=== PATIENT | female | born 1985 | race Native Hawaiian/Other Pacific Islander ===

== ENCOUNTER 2019-04-13 18:37 | Emergency (ER) | payer OTHER ==
[2019-04-13] MEDS ORDERED: SODIUM CHLORIDE 0.9% 1,000 ML IV STA (19:27)
[2019-04-13] MEDS ORDERED: IPRATROPIUM-ALBUTEROL 3 ML NEB INHALATION STA (19:27)
[2019-04-13 19:58] LABS: Anion Gap 10 mmol/L; Blood Urea Nitrogen 10 mg/dL (7-17); Carbon Dioxide 23 mmol/L (22-30); Chloride 107 mmol/L (98-107); Glucose 92 mg/dL (74-99); Sodium 140 mmol/L (137-145)
[2019-04-13 19:59] LABS: ALT 19 U/L (9-52); AST 24 U/L (14-36); Albumin 4.3 g/dL (3.5-5.0); Alkaline Phosphatase 91 U/L (38-126); Calcium 9.1 mg/dL (8.4-10.2); Total Bilirubin 0.4 mg/dL (0.2-1.3); Total Protein 7.8 g/dL (6.3-8.2)
[2019-04-13 19:59] LABS: Amorphous Sediment,Urine Rare /hpf; Appearance,Urine Clear (Clear); Bacteria,Urine Rare /hpf; Bilirubin,Urine Negative (Negative); Blood,Urine Trace (Negative); Color,Urine Yellow; Glucose,Urine (UA) Negative (Negative); Ketones,Urine Negative (Negative); Leukocyte Esterase,Urine Negative (Negative); Mucus,Urine Occasional /hpf; Nitrite,Urine Negative (Negative); PH, Urine 7.5 (5.0-8.0); Protein,Urine Negative (Negative); RBC,Urine 4 /hpf (0-5); Specific Gravity,Urine 1.014 (1.001-1.035); Squamous Epithelial Cell,Urine 2 /hpf (0-4); WBC,Urine 2 /hpf (0-5)
--- NOTE | 2019-04-13 20:02 | XR ---
EXAMINATION TYPE: XR chest 2V DATE OF EXAM: 04/13/2019 COMPARISON: None INDICATION: Difficulty breathing cough and congestion TECHNIQUE: Frontal and lateral views of the chest are obtained. FINDINGS: The heart size is normal. The pulmonary vasculature is normal. The lungs are clear. IMPRESSION: 1. No acute pulmonary process.
[2019-04-13 20:18] LABS: Basophils % (A) 1 %; Eosinophils # (A) 0.2 k/uL (0-0.7); Eosinophils % (A) 3 %; HCT 36.3 % (34.0-46.0); HGB 11.2 gm/dL (11.4-16.0); Hypochromasia Marked; Lymphocytes # (A) 1.1 k/uL (1.0-4.8); Lymphocytes % (A) 21 %; MCH 22.4 pg (25.0-35.0); MCHC 30.8 g/dL (31.0-37.0); MCV 72.6 fL (80.0-100.0); Mean Platelet Volume 6.5; Microcytosis Moderate; Monocytes # (A) 0.3 k/uL (0-1.0); Monocytes % (A) 7 %; Neutrophils # (A) 3.5 k/uL (1.3-7.7); Neutrophils % (A) 66 %; Platelet Count 233 k/uL (150-450); WBC 5.3 k/uL (3.8-10.6)
[2019-04-13 20:21] LABS: Partial Thromboplastin Time 26.7 sec (22.0-30.0); Prothrombin Time 10.4 sec (9.0-12.0)
[2019-04-13 20:23] LABS: D-Dimer 0.83 mg/L FEU (<0.60)
[2019-04-13 20:34] VITALS: RESP 19
[2019-04-13] MEDS ORDERED: ACETAMINOPHEN TAB 325 MG TAB PO STA ×2 (20:44→21:38)
[2019-04-13 20:57] VITALS: PULSE 98
--- NOTE | 2019-04-13 21:27 | US ---
EXAMINATION TYPE: US venous doppler duplex LE LT DATE OF EXAM: 04/13/2019 8:27 PM COMPARISON: NONE CLINICAL HISTORY: Pain. Pain left leg SIDE PERFORMED: Left TECHNIQUE: The lower extremity deep venous system is examined utilizing real time linear array sonog radha with graded compression, doppler sonography and color-flow sonography. VESSELS IMAGED: External Iliac Vein (EIV) Common Femoral Vein Deep Femoral Vein Greater Saphenous Vein * Femoral Vein Popliteal Vein Small Saphenous Vein * Proximal Calf Veins (* superficial vessels) Left Leg: Negative for DVT IMPRESSION: 1. Left lower extremity ultrasound negative for deep venous thrombosis.
--- NOTE | 2019-04-13 22:05 | CT ---
CT CHEST FOR PULMONARY EMBOLISM. EXAMINATION TYPE: CT chest angio for PE DATE OF EXAM: 04/13/2019 INDICATION: Cough. CT DLP: 527 mGycm, Automated exposure control for dose reduction was used. CONTRAST: Patient injected with 60ml mL of Isovue 370. COMPARISON: None TECHNIQUE: CT of the chest is performed on a spiral scan at 2 mm thick sections. Study is performed with intravenous contrast timed for evaluation for pulmonary embolism. This will limit additional po rtions of the evaluation. 3-D MIP images reconstructed by the technologist are reviewed on the compu ter in the coronal and sagittal planes. FINDINGS: No persistent filling defects are evident to suggest an acute pulmonary embolism. No mediastinal or hilar adenopathy enlarged by CT criteria is evident. The ascending aorta diameter at the level of the main pulmonary artery is 2.7 cm. The main pulmonary artery diameter at the bifur cation is 2.3 cm. Minimal compressive atelectasis is present. Limited CT section through the upper abdomen are unremarkable. IMPRESSIONS: 1. No acute pulmonary embolism.
[2019-04-13] MEDS ORDERED: methylPREDNISolone SOD SUCCI 125 MG/2 ML VIAL IV STA (22:24)
--- NOTE | 2019-04-13 22:54 | ED ---
General Adult HPI - General Source: patient, RN notes reviewed, old records reviewed Mode of arrival: ambulatory Limitations: no limitations <Jose Luis Bashir - Last Filed: 04/13/19 23:23> <Mackenzie Trinh - Last Filed: 04/14/19 07:39> - General Chief complaint: Upper Respiratory Infection Stated complaint: PRICILA Time Seen by Provider: 04/13/19 19:19 - History of Present Illness Initial comments: 33-year-old female patient presents to ED with 3 days of cough, shortness of breath. Patient has a pertinent past medical history of a tubal ligation. Patient denies any recent prolonged travel. Patient does also report that she is having some chest pain while coughing. Patient denies any pain at rest. Patient denies any nausea vomiting or diarrhea. Patient denies any abdominal pain. Systemic: Pt denies fatigue, myalgia, fever/chills, rash. Pt denies weakness, night sweats, weight loss. Neuro: Pt denies headache, visual disturbances, syncope or pre-syncope. HEENT: Pt denies ocular discharge or irritation, otalgia, rhinorrhea, pharyngitis or notable lymphadenopathy. Cardiopulmonary: Pt denies heart palpitations, dyspnea on exertion. Abdominal/GI: Pt denies abdominal pain, n/v/d. : Pt denies dysuria, burning w/ urination, frequency/urgency. Denies new onset urinary or bowel incontinence. MSK: Pt denies myalgia, loss of strength or function in extremities. Neuro: Pt denies new onset weakness, paresthesias. (Jose Luis Bashir) - Related Data Previous Rx's Medication Instructions Recorded Albuterol Inhaler [Ventolin Hfa 1 - 2 puff INHALATION Q4-6H PRN #1 04/13/19 Inhaler] inhaler Albuterol Nebulized [Ventolin 2.5 mg INHALATION Q4H PRN 10 Days 04/13/19 Nebulized] nebu predniSONE 50 mg PO DAILY #5 tab 04/13/19 Allergies Allergy/AdvReac Type Severity Reaction Status Date / Time No Known Allergies Allergy Verified 04/13/19 21:25 Review of Systems ROS Other: All systems not noted in ROS Statement are negative. <Jose Luis Bashir - Last Filed: 04/13/19 23:23> ROS Other: All systems not noted in ROS Statement are negative. <Mackenzie Trinh - Last Filed: 04/14/19 07:39> ROS Statement: Those systems with pertinent positive or pertinent negative responses have been documented in the HPI. Past Medical History Past Medical History: No Reported History Additional Past Medical History / Comment(s): HEADACHES History of Any Multi-Drug Resistant Organisms: None Reported Past Surgical History: Section Past Psychological History: No Psychological Hx Reported Smoking Status: Never smoker Past Alcohol Use History: None Reported Past Drug Use History: None Reported - Past Family History Father Family Medical History: Diabetes Mellitus <Jose Luis Bashir - Last Filed: 04/13/19 23:23> General Exam Limitations: no limitations <Jose Luis Bashir - Last Filed: 04/13/19 23:23> - General Exam Comments Initial Comments: Constitutional: NAD, AOX3, Pt has pleasant affect. HEENT: NC/AT, trachea midline, neck supple, no lymphadenopathy. Posterior pharynx non erythematous, without exudates. External ears appear normal, without discharge. Mucous membranes moist. Eyes PERRLA, EOM intact. There is no scleral icterus. No pallor noted. Cardiopulmonary: RRR, no murmurs, rubs or gallops, no JVD noted. Lungs CTAB in anterior and posterior tran. No peripheral edema. Abdominal exam: Abdomen soft and non-distended. Abdomen non-tender to palpation in all 4 quadrants. Bowel sounds active in LLQ. No hepatosplenomegaly. No ecc hymosis Neuro: CN II-XII grossly intact. No nuchal rigidity. MSK: Left popliteal region mildly tender to palpation. RLE nontender to palpation.. Posterior tibialis and radial pulse +2 bilaterally. Sensation intact in upper and lower extremities. Full active ROM in upper and lower extremities, 5/5 stregnth. (Jose Luis Bashir) Course Vital Signs 04/13/19 04/13/19 04/13/19 18:39 19:52 20:33 Temperature 99.2 F 100.8 F H Pulse Rate 129 H 92 Respiratory 24 22 19 Rate Blood Pressure 124/75 134/78 O2 Sat by Pulse 99 99 Oximetry 04/13/19 04/13/19 04/13/19 20:42 20:55 23:13 Temperature 99.4 F Pulse Rate 92 98 98 Respiratory 19 Rate Blood Pressure 121/75 O2 Sat by Pulse 99 Oximetry Medical Decision Making - Lab Data Result diagrams: 04/13/19 19:30 04/13/19 19:30 <Jose Luis Bashir - Last Filed: 04/13/19 23:23> - Lab Data Result diagrams: 04/13/19 19:30 04/13/19 19:30 <Mackenzie Trinh - Last Filed: 04/14/19 07:39> - Medical Decision Making 33-year-old female patient presents to ED with 3 days of cough, shortness of breath. Patient has a pertinent past medical history of a tubal ligation. Patient denies any recent prolonged travel. Patient does also report that she is having some chest pain while coughing. Patient denies any pain at rest. Patient denies any nausea vomiting or diarrhea. Patient denies any abdominal pain. Patient vital signs displayed tachycardia which resolved without intervention. Patient mildly febrile ministered an antipyretic. Physical exam displayed: Left popliteal region mildly tender to palpation. Lungs clear to auscultation. Abdomen is patient will not impressive CBC, CMP. Coagulation studies non-impressive. D-dimer mildly elevated. Troponin negative. BNP negative. UA negative. Chest x-ray revealed no acute process. Left lower extremity ultrasound revealed no DVT. CTA revealed no pulmonary embolism. EKG not concerning for acute ischemia. Patient will be treated for bronchitis. Patient follow with primary care provider tomorrow. Patient returned here if condition worsens in any way. Case discussed with Dr. Trinh. (Jose Luis Bashir) I was available for consultation in the emergency department. The history and physical exam were done by the midlevel provider. I was consulted for this patient's care. I reviewed the case with the midlevel provider and based on their presentation of the patient, I agree with the assessment, medical decision making and plan of care as documented. Chart was dictated using [employer]and[employer] dictation software. Attempts were made to correct any dictation errors however some typographical errors may persist. (Mackenzie Trinh) - Lab Data Lab Results 04/13/19 04/13/19 04/13/19 Range/Units 19:30 19:30 19:30 WBC 5.3 (3.8-10.6) k/uL RBC 5.00 (3.80-5.40) m/uL Hgb 11.2 L (11.4-16.0) gm/dL Hct 36.3 (34.0-46.0) % MCV 72.6 L (80.0-100.0) fL MCH 22.4 L (25.0-35.0) pg MCHC 30.8 L (31.0-37.0) g/dL RDW 16.0 H (11.5-15.5) % Plt Count 233 (150-450) k/uL Neutrophils % 66 % Lymphocytes % 21 % Monocytes % 7 % Eosinophils % 3 % Basophils % 1 % Neutrophils # 3.5 (1.3-7.7) k/uL Lymphocytes # 1.1 (1.0-4.8) k/uL Monocytes # 0.3 (0-1.0) k/uL Eosinophils # 0.2 (0-0.7) k/uL Basophils # 0.0 (0-0.2) k/uL Hypochromasia Marked Microcytosis Moderate PT 10.4 (9.0-12.0) sec INR 1.0 (<1.2) APTT 26.7 (22.0-30.0) sec D-Dimer 0.83 H (<0.60) mg/L FEU Sodium 140 (137-145) mmol/L Potassium 4.0 (3.5-5.1) mmol/L Chloride 107 (98-107) mmol/L Carbon Dioxide 23 (22-30) mmol/L Anion Gap 10 mmol/L BUN 10 (7-17) mg/dL Creatinine 0.63 (0.52-1.04) mg/dL Est GFR (CKD-EPI)AfAm >90 (>60 ml/min/1.73 sqM) Est GFR (CKD-EPI)NonAf >90 (>60 ml/min/1.73 sqM) Glucose 92 (74-99) mg/dL Calcium 9.1 (8.4-10.2) mg/dL Total Bilirubin 0.4 (0.2-1.3) mg/dL AST 24 (14-36) U/L ALT 19 (9-52) U/L Alkaline Phosphatase 91 (38-126) U/L Troponin I (0.000-0.034) ng/mL NT-Pro-B Natriuret Pep pg/mL Total Protein 7.8 (6.3-8.2) g/dL Albumin 4.3 (3.5-5.0) g/dL Urine Color Urine Appearance (Clear) Urine pH (5.0-8.0) Ur Specific [place] (1.001-1.035) Urine Protein (Negative) Urine Glucose (UA) (Negative) Urine Ketones (Negative) Urine Blood (Negative) Urine Nitrite (Negative) Urine Bilirubin (Negative) Urine Urobilinogen (<2.0) mg/dL Ur Leukocyte Esterase (Negative) Urine RBC (0-5) /hpf Urine WBC (0-5) /hpf Ur Squamous Epith Cells (0-4) /hpf Amorphous Sediment (None) /hpf Urine Bacteria (None) /hpf Urine Mucus (None) /hpf 04/13/19 04/13/19 04/13/19 Range/Units 19:30 19:30 19:40 WBC (3.8-10.6) k/uL RBC (3.80-5.40) m/uL Hgb (11.4-16.0) gm/dL Hct (34.0-46.0) % MCV (80.0-100.0) fL MCH (25.0-35.0) pg MCHC (31.0-37.0) g/dL RDW (11.5-15.5) % Plt Count (150-450) k/uL Neutrophils % % Lymphocytes % % Monocytes % % Eosinophils % % Basophils % % Neutrophils # (1.3-7.7) k/uL Lymphocytes # (1.0-4.8) k/uL Monocytes # (0-1.0) k/uL Eosinophils # (0-0.7) k/uL Basophils # (0-0.2) k/uL Hypochromasia Microcytosis PT (9.0-12.0) sec INR (<1.2) APTT (22.0-30.0) sec D-Dimer (<0.60) mg/L FEU Sodium (137-145) mmol/L Potassium (3.5-5.1) mmol/L Chloride (98-107) mmol/L Carbon Dioxide (22-30) mmol/L Anion Gap mmol/L BUN (7-17) mg/dL Creatinine (0.52-1.04) mg/dL Est GFR (CKD-EPI)AfAm (>60 ml/min/1.73 sqM) Est GFR (CKD-EPI)NonAf (>60 ml/min/1.73 sqM) Glucose (74-99) mg/dL Calcium (8.4-10.2) mg/dL Total Bilirubin (0.2-1.3) mg/dL AST (14-36) U/L ALT (9-52) U/L Alkaline Phosphatase (38-126) U/L Troponin I <0.012 (0.000-0.034) ng/mL NT-Pro-B Natriuret Pep 21 pg/mL Total Protein (6.3-8.2) g/dL Albumin (3.5-5.0) g/dL Urine Color Yellow Urine Appearance Clear (Clear) Urine pH 7.5 (5.0-8.0) Ur Specific [place] 1.014 (1.001-1.035) Urine Protein Negative (Negative) Urine Glucose (UA) Negative (Negative) Urine Ketones Negative (Negative) Urine Blood Trace H (Negative) Urine Nitrite Negative (Negative) Urine Bilirubin Negative (Negative) Urine Urobilinogen 2.0 (<2.0) mg/dL Ur Leukocyte Esterase Negative (Negative) Urine RBC 4 (0-5) /hpf Urine WBC 2 (0-5) /hpf Ur Squamous Epith Cells 2 (0-4) /hpf Amorphous Sediment Rare H (None) /hpf Urine Bacteria Rare H (None) /hpf Urine Mucus Occasional H (None) /hpf Disposition Is patient prescribed a controlled substance at d/c from ED?: No <Jose Luis Bashir - Last Filed: 04/13/19 23:23> <Mackenzie Trinh - Last Filed: 04/14/19 07:39> Clinical Impression: Bronchitis Disposition: HOME SELF-CARE Condition: Stable Instructions (If sedation given, give patient instructions): Acute Bronchitis (ED) Additional Instructions: Patient to adhere to previously discussed treatment plan and will take medication(s) as directed. Patient to follow up with PCP in 1-2 days. Patient to return to ED if symptoms do not improve. Take medications directed. Follow up with primary care provider tomorrow. Return to the ER immediately if condition worsens. Prescriptions: predniSONE 50 mg PO DAILY #5 tab Albuterol Inhaler [Ventolin Hfa Inhaler] 1 - 2 puff INHALATION Q4-6H PRN #1 inhaler PRN Reason: Cough Albuterol Nebulized [Ventolin Nebulized] 2.5 mg INHALATION Q4H PRN 10 Days nebu PRN Reason: Cough Referrals: None,Stated [Primary Care Provider] - 1-2 days [facility] - 1-2 days
[2019-04-13 23:14] VITALS: BP 121/75; TEMP 99.4
== END 2019-04-13 23:23 | disposition home or self-care (01) ==
LOC: EC 18:37
DX: J40 Bronchitis, not specified as acute or chronic (principal); R79.1 Abnormal coagulation profile; Z53.8 Procedure and treatment not carried out for other reasons
CPT/HCPCS: 36415; 94640; 93005; 85379; 83880; 80053; 84484; 85025; 85610; 85730; 81001; 71046; 93971; 71275; 99285; 96374; 96361; J2930; Q9967

== ENCOUNTER 2019-11-21 19:17 | Emergency (ER) | payer OTHER ==
[2019-11-21 19:29] VITALS: BP 117/69; PULSE 113; RESP 20; TEMP 101.2
--- NOTE | 2019-11-21 20:41 | XR ---
EXAMINATION TYPE: XR chest 2V DATE OF EXAM: 11/21/2019 COMPARISON: 04/13/2019 INDICATION: Fever wheezing TECHNIQUE: Frontal and lateral views of the chest are obtained. FINDINGS: The heart size is normal. The pulmonary vasculature is normal. The lungs are clear. IMPRESSION: 1. No acute pulmonary process.
[2019-11-21 21:33] LABS: Basophils % (A) 1 %; Eosinophils # (A) 0.1 k/uL (0-0.7); Eosinophils % (A) 2 %; HGB 9.9 gm/dL (11.4-16.0); Hypochromasia Slight; Lymphocytes # (A) 0.6 k/uL (1.0-4.8); Lymphocytes % (A) 20 %; MCH 22.2 pg (25.0-35.0); MCV 71.4 fL (80.0-100.0); Mean Platelet Volume 7.3; Microcytosis Moderate; Monocytes # (A) 0.4 k/uL (0-1.0); Monocytes % (A) 12 %; Neutrophils # (A) 1.9 k/uL (1.3-7.7); Neutrophils % (A) 61 %; Platelet Count 265 k/uL (150-450); RBC 4.48 m/uL (3.80-5.40); RDW 15.4 % (11.5-15.5); WBC 3.1 k/uL (3.8-10.6)
[2019-11-21 21:42] LABS: African American GFR (CKD) >90 (>60 ml/min/1.73 sqM); Anion Gap 8 mmol/L; Blood Urea Nitrogen 16 mg/dL (7-17); Calcium 8.9 mg/dL (8.4-10.2); Carbon Dioxide 21 mmol/L (22-30); Chloride 109 mmol/L (98-107); Glucose 98 mg/dL (74-99); Non-African American GFR(CKD) >90 (>60 ml/min/1.73 sqM); Potassium 4.2 mmol/L (3.5-5.1); Sodium 138 mmol/L (137-145)
[2019-11-21] MEDS ORDERED: ACETAMINOPHEN TAB 325 MG TAB PO STA (22:05)
[2019-11-21] MEDS ORDERED: IBUPROFEN 600 MG TAB PO STA (22:08)
--- NOTE | 2019-11-21 22:08 | ED ---
URI HPI - General Chief Complaint: Upper Respiratory Infection Stated Complaint: fever/wheezing Source: patient Mode of arrival: ambulatory Limitations: no limitations - History of Present Illness Initial Comments: 34-year-old female presenting today for chief complaint of cough fever. Patient states the past 2-3 days she has had cough today she felt as though she had a fever. Patient states she has congestion. Patient denies abdominal pain neck pain vomiting diarrhea. Patient states she has been around others have been sick. upon arrival patient appears nontoxic no signs of acute distress. Patient states she feels that she also has a wheeze.remaining review systems negative - Related Data Previous Rx's Medication Instructions Recorded Albuterol Inhaler [Ventolin Hfa 1 - 2 puff INHALATION Q4-6H PRN #1 04/13/19 Inhaler] inhaler Albuterol Nebulized [Ventolin 2.5 mg INHALATION Q4H PRN 10 Days 04/13/19 Nebulized] nebu predniSONE 50 mg PO DAILY #5 tab 04/13/19 Acetaminophen [Tylenol] 500 mg PO Q4-6H PRN 5 Days #20 tab 11/21/19 Ibuprofen 600 mg PO Q8HR 5 Days #15 tablet 11/21/19 Allergies Allergy/AdvReac Type Severity Reaction Status Date / Time No Known Allergies Allergy Verified 11/21/19 19:29 Review of Systems ROS Statement: Those systems with pertinent positive or pertinent negative responses have been documented in the HPI. ROS Other: All systems not noted in ROS Statement are negative. Past Medical History Past Medical History: No Reported History Additional Past Medical History / Comment(s): HEADACHES History of Any Multi-Drug Resistant Organisms: None Reported Past Surgical History: Section Past Psychological History: No Psychological Hx Reported Smoking Status: Never smoker Past Alcohol Use History: None Reported Past Drug Use History: None Reported - Past Family History Father Family Medical History: Diabetes Mellitus General Exam - General Exam Comments Initial Comments: General: The patient is awake and alert, in no distress, and does not appear acutely ill. Eye: +3 mm pupils are equal, round and reactive to light, extra-ocular movements are intact. No nystagmus. There is normal conjunctiva bilaterally. No signs of icterus. No photophobia Ears, nose, mouth and throat: There are moist mucous membranes and no oral lesions. Oropharynx was erythematous there is no tonsillar enlargement exudates or lesions. Uvula midline. Tympanic membranes are not erythematous or is no effusions bulging or retraction. No tenderness to palpation of the mastoid. No anterior cervical lymphadenopathy. Rhinorrhea, clear and bilateral nares. No tripoding, no drooling. Neck: The neck is supple, there is no tenderness or JVD. No nuchal rigidity Cardiovascular: There is a regular rate and rhythm. No murmur, rub or gallop is appreciated. Respiratory: Lungs are clear to auscultation, respirations are non-labored, breath sounds are equal. No wheezes, stridor, rales, or rhonchi. No retrac tions or abdominal breathing. Gastrointestinal: Soft, non-distended, non-tender abdomen without masses or organomegaly noted. There is no rebound or guarding present. Bowel sounds are unremarkable. Musculoskeletal: Normal ROM, no tenderness. Strength 5/5. Sensation intact. Radial pulses equal bilaterally 2+. Neurological: A&O x 3. CN II-XII intact grossly, There are no obvious motor or sensory deficits. Coordination appears grossly intact. Speech appears normal, no muffling. Skin: Skin is warm and dry and no rashes or lesions are noted. No extremity edema Psychiatric: Cooperative Limitations: no limitations Course Vital Signs 11/21/19 19:27 Temperature 101.2 F H Pulse Rate 113 H Respiratory 20 Rate Blood Pressure 117/69 O2 Sat by Pulse 96 Oximetry Medical Decision Making - Medical Decision Making 34-year-old female presenting today for chief complaint of fever cough wheezing. Lungs clear on examination. Chest x-ray no focal consolidations. Patient state she has a pain in the chest with cough on occasion. Denies pain or pressure at rest. Patient appears well no signs of respiratory distress. Patient is febrile on arrival. Troponin negative no murmur on exam the lower extremity edema. EKG revealed mild QT prolongation otherwise no acute findings. Patient influenza (-). noted to have pancytopenia. I feel this is most likely due to viral syndrome however recommend patient have repeat laboratory studies within the next week with primary care provider. Patient given antipyreticsemergency department. Patient is agreeable with discharge at this time states she really just came for a work note. Patietn discharged appearing well after discussing the cases with Dr. Trinh - Lab Data Result diagrams: 11/21/19 21:10 11/21/19 21:10 Lab Results 11/21/19 11/21/19 11/21/19 Range/Units 19:30 21:10 21:10 WBC 3.1 L (3.8-10.6) k/uL RBC 4.48 (3.80-5.40) m/uL Hgb 9.9 L (11.4-16.0) gm/dL Hct 32.0 L (34.0-46.0) % MCV 71.4 L (80.0-100.0) fL MCH 22.2 L (25.0-35.0) pg MCHC 31.0 (31.0-37.0) g/dL RDW 15.4 (11.5-15.5) % Plt Count 265 (150-450) k/uL Neutrophils % 61 % Lymphocytes % 20 % Monocytes % 12 % Eosinophils % 2 % Basophils % 1 % Neutrophils # 1.9 (1.3-7.7) k/uL Lymphocytes # 0.6 L (1.0-4.8) k/uL Monocytes # 0.4 (0-1.0) k/uL Eosinophils # 0.1 (0-0.7) k/uL Basophils # 0.0 (0-0.2) k/uL Hypochromasia Slight Microcytosis Moderate Sodium 138 (137-145) mmol/L Potassium 4.2 (3.5-5.1) mmol/L Chloride 109 H (98-107) mmol/L Carbon Dioxide 21 L (22-30) mmol/L Anion Gap 8 mmol/L BUN 16 (7-17) mg/dL Creatinine 0.74 (0.52-1.04) mg/dL Est GFR (CKD-EPI)AfAm >90 (>60 ml/min/1.73 sqM) Est GFR (CKD-EPI)NonAf >90 (>60 ml/min/1.73 sqM) Glucose 98 (74-99) mg/dL Calcium 8.9 (8.4-10.2) mg/dL Troponin I (0.000-0.034) ng/mL Influenza Type A RNA Not Detected (Not Detectd) Influenza Type B (PCR) Not Detected (Not Detectd) 11/21/19 Range/Units 21:10 WBC (3.8-10.6) k/uL RBC (3.80-5.40) m/uL Hgb (11.4-16.0) gm/dL Hct (34.0-46.0) % MCV (80.0-100.0) fL MCH (25.0-35.0) pg MCHC (31.0-37.0) g/dL RDW (11.5-15.5) % Plt Count (150-450) k/uL Neutrophils % % Lymphocytes % % Monocytes % % Eosinophils % % Basophils % % Neutrophils # (1.3-7.7) k/uL Lymphocytes # (1.0-4.8) k/uL Monocytes # (0-1.0) k/uL Eosinophils # (0-0.7) k/uL Basophils # (0-0.2) k/uL Hypochromasia Microcytosis Sodium (137-145) mmol/L Potassium (3.5-5.1) mmol/L Chloride (98-107) mmol/L Carbon Dioxide (22-30) mmol/L Anion Gap mmol/L BUN (7-17) mg/dL Creatinine (0.52-1.04) mg/dL Est GFR (CKD-EPI)AfAm (>60 ml/min/1.73 sqM) Est GFR (CKD-EPI)NonAf (>60 ml/min/1.73 sqM) Glucose (74-99) mg/dL Calcium (8.4-10.2) mg/dL Troponin I <0.012 (0.000-0.034) ng/mL Influenza Type A RNA (Not Detectd) Influenza Type B (PCR) (Not Detectd) Disposition Clinical Impression: Pancytopenia, Cough, Fever, Congestion of nasal sinus Disposition: HOME SELF-CARE Condition: Good Instructions (If sedation given, give patient instructions): Upper Respiratory Infection (ED) Additional Instructions: Please use medication as discussed. Please follow-up with family doctor in the next 2 days, i recommend repeat laboratory studies. Please return to emergency room if the symptoms increase or worsen or for any other concerns. Prescriptions: Ibuprofen 600 mg PO Q8HR 5 Days #15 tablet Acetaminophen [Tylenol] 500 mg PO Q4-6H PRN 5 Days #20 tab PRN Reason: Fever Is patient prescribed a controlled substance at d/c from ED?: No Referrals: None,Stated [Primary Care Provider] - 1-2 days [facility] [NON-STA[facility]] - 1-2 days Time of Disposition: 22:06
== END 2019-11-21 22:22 | disposition home or self-care (01) ==
LOC: EC 19:17
DX: D61.818 Other pancytopenia (principal); R09.81 Nasal congestion; R50.9 Fever, unspecified; R05 Cough; R94.31 Abnormal electrocardiogram [ECG] [EKG]; J39.2 Other diseases of pharynx; R06.2 Wheezing; R07.9 Chest pain, unspecified
CPT/HCPCS: 36415; 71046; 80048; 84484; 85025; 87502; 93005; 99285

== ENCOUNTER 2019-12-19 10:11 | Emergency (ER) | payer OTHER ==
[2019-12-19] MEDS ORDERED: IBUPROFEN 800 MG TAB PO STA (10:27)
[2019-12-19] MEDS ORDERED: ACETAMINOPHEN TAB 500 MG TAB PO STA (10:27)
[2019-12-19 11:05] LABS: Appearance,Urine Cloudy (Clear); Bacteria,Urine Rare /hpf; Bilirubin,Urine Negative (Negative); Blood,Urine Moderate (Negative); Color,Urine Yellow; Glucose,Urine (UA) Negative (Negative); Ketones,Urine Negative (Negative); Leukocyte Esterase,Urine Moderate (Negative); Mucus,Urine Occasional /hpf; Nitrite,Urine Negative (Negative); Protein,Urine 1+ (Negative); RBC,Urine 35 /hpf (0-5); Specific Gravity,Urine 1.021 (1.001-1.035); Squamous Epithelial Cell,Urine 8 /hpf (0-4); WBC,Urine 54 /hpf (0-5)
[2019-12-19] MEDS ORDERED: SODIUM CHLORIDE 0.9% 1,000 ML IV ONE (11:19)
--- NOTE | 2019-12-19 11:24 | ED ---
Fever HPI - General Chief Complaint: Fever Stated Complaint: Fever Time Seen by Provider: 12/19/19 10:20 Source: patient Mode of arrival: ambulatory Limitations: no limitations - History of Present Illness Initial Comments: 34-year-old female presents emergency Department chief complaint of fever. Patient states she has been febrile over the Last 3 days with no major complaints. She has had some mild abdominal pain but states that she started her menstrual cycle. She does admit that she can history kidney stones when she passed one past. Patient has no complaints of dysuriaor urinary frequency . She has not taken any for her fever including Tylenol Motrin. Denies any chest pain, cough or cold-like symptomsPatient does admit that she's had multiple sick contacts. - Related Data Previous Rx's Medication Instructions Recorded Albuterol Inhaler [Ventolin Hfa 1 - 2 puff INHALATION Q4-6H PRN #1 04/13/19 Inhaler] inhaler Albuterol Nebulized [Ventolin 2.5 mg INHALATION Q4H PRN 10 Days 04/13/19 Nebulized] nebu predniSONE 50 mg PO DAILY #5 tab 04/13/19 Acetaminophen [Tylenol] 500 mg PO Q4-6H PRN 5 Days #20 tab 11/21/19 Ibuprofen 600 mg PO Q8HR 5 Days #15 tablet 11/21/19 Cephalexin [Keflex] 500 mg PO Q8HR #30 cap 12/19/19 Ibuprofen [Motrin] 800 mg PO Q6HR #30 tab 12/19/19 Allergies Allergy/AdvReac Type Severity Reaction Status Date / Time morphine Allergy Vomiting Verified 12/19/19 10:19 Review of Systems ROS Statement: Those systems with pertinent positive or pertinent negative responses have been documented in the HPI. ROS Other: All systems not noted in ROS Statement are negative. Past Medical History Past Medical History: No Reported History Additional Past Medical History / Comment(s): HEADACHES History of Any Multi-Drug Resistant Organisms: None Reported Past Surgical History: Section Past Psychological History: No Psychological Hx Reported Smoking Status: Never smoker Past Alcohol Use History: None Reported Past Drug Use History: None Reported - Past Family History Father Family Medical History: Diabetes Mellitus General Exam Limitations: no limitations General appearance: alert, in no apparent distress Head exam: Present: atraumatic, normocephalic, normal inspection Eye exam: Present: normal appearance, PERRL, EOMI. Absent: scleral icterus, conjunctival injection, periorbital swelling ENT exam: Present: normal exam, normal oropharynx, mucous membranes moist, TM's normal bilaterally Neck exam: Present: normal inspection, full ROM. Absent: tenderness, meningismus, lymphadenopathy Respiratory exam: Present: normal lung sounds bilaterally. Absent: respiratory distress, wheezes, rales, rhonchi, stridor Cardiovascular Exam: Present: normal rhythm, tachycardia, normal heart sounds. Absent: systolic murmur, diastolic murmur, rubs, gallop, clicks GI/Abdominal exam: Present: soft, tenderness (Mild right-sided), normal bowel sounds. Absent: distended, guarding, rebound, rigid Back exam: Absent: CVA tenderness (R), CVA tenderness (L) Neurological exam: Present: alert Skin exam: Present: warm, dry, intact, normal color. Absent: rash Course Vital Signs 12/19/19 12/19/19 10:17 11:48 Temperature 102.9 F H 101.5 F H Pulse Rate 111 H 103 H Respiratory 16 18 Rate Blood Pressure 181/77 121/72 O2 Sat by Pulse 98 98 Oximetry Medical Decision Making - Medical Decision Making 34-year-old female presented for fever. Patient's urinalysis was reviewed showed evidence of urinary tract infection. Patient's was having some mild right-sided pain and there is concern for possible infection versus infected stone. Patient was given 2 g Rocephin labs reviewed lactic acid is 1, mild leukocytosis. Patient feels improved after IV fluids, antibiotics. Patient be discharged in stable condition with close follow-up return parameters were discussed. - Lab Data Result diagrams: 12/19/19 11:26 12/19/19 11:26 Lab Results 12/19/19 12/19/19 12/19/19 Range/Units 10:35 10:35 10:35 WBC (3.8-10.6) k/uL RBC (3.80-5.40) m/uL Hgb (11.4-16.0) gm/dL Hct (34.0-46.0) % MCV (80.0-100.0) fL MCH (25.0-35.0) pg MCHC (31.0-37.0) g/dL RDW (11.5-15.5) % Plt Count (150-450) k/uL Neutrophils % % Lymphocytes % % Monocytes % % Eosinophils % % Basophils % % Neutrophils # (1.3-7.7) k/uL Lymphocytes # (1.0-4.8) k/uL Monocytes # (0-1.0) k/uL Eosinophils # (0-0.7) k/uL Basophils # (0-0.2) k/uL Hypochromasia Microcytosis Sodium (137-145) mmol/L Potassium (3.5-5.1) mmol/L Chloride (98-107) mmol/L Carbon Dioxide (22-30) mmol/L Anion Gap mmol/L BUN (7-17) mg/dL Creatinine (0.52-1.04) mg/dL Est GFR (CKD-EPI)AfAm (>60 ml/min/1.73 sqM) Est GFR (CKD-EPI)NonAf (>60 ml/min/1.73 sqM) Glucose (74-99) mg/dL Plasma Lactic Acid [place] (0.7-2.0) mmol/L Calcium (8.4-10.2) mg/dL Total Bilirubin (0.2-1.3) mg/dL AST (14-36) U/L ALT (4-34) U/L Alkaline Phosphatase (38-126) U/L Total Protein (6.3-8.2) g/dL Albumin (3.5-5.0) g/dL Urine Color Yellow Urine Appearance Cloudy H (Clear) Urine pH 6.0 (5.0-8.0) Ur Specific [place] 1.021 (1.001-1.035) Urine Protein 1+ H (Negative) Urine Glucose (UA) Negative (Negative) Urine Ketones Negative (Negative) Urine Blood Moderate H (Negative) Urine Nitrite Negative (Negative) Urine Bilirubin Negative (Negative) Urine Urobilinogen 3.0 (<2.0) mg/dL Ur Leukocyte Esterase Moderate H (Negative) Urine RBC 35 H (0-5) /hpf Urine WBC 54 H (0-5) /hpf Ur Squamous Epith Cells 8 H (0-4) /hpf Urine Bacteria Rare H (None) /hpf Urine Mucus Occasional H (None) /hpf Urine HCG, Qual Not Detected (Not Detectd) Influenza Type A RNA Not Detected (Not Detectd) Influenza Type B (PCR) Not Detected (Not Detectd) 12/19/19 12/19/19 12/19/19 Range/Units 11:26 11:26 11:26 WBC 8.1 (3.8-10.6) k/uL RBC 4.29 (3.80-5.40) m/uL Hgb 9.8 L (11.4-16.0) gm/dL Hct 30.2 L (34.0-46.0) % MCV 70.5 L (80.0-100.0) fL MCH 22.8 L (25.0-35.0) pg MCHC 32.4 (31.0-37.0) g/dL RDW 15.6 H (11.5-15.5) % Plt Count 282 (150-450) k/uL Neutrophils % 78 % Lymphocytes % 12 % Monocytes % 6 % Eosinophils % 0 % Basophils % 0 % Neutrophils # 6.3 (1.3-7.7) k/uL Lymphocytes # 1.0 (1.0-4.8) k/uL Monocytes # 0.5 (0-1.0) k/uL Eosinophils # 0.0 (0-0.7) k/uL Basophils # 0.0 (0-0.2) k/uL Hypochromasia Slight Microcytosis Moderate Sodium 139 (137-145) mmol/L Potassium 3.8 (3.5-5.1) mmol/L Chloride 105 (98-107) mmol/L Carbon Dioxide 22 (22-30) mmol/L Anion Gap 12 mmol/L BUN 12 (7-17) mg/dL Creatinine 0.71 (0.52-1.04) mg/dL Est GFR (CKD-EPI)AfAm >90 (>60 ml/min/1.73 sqM) Est GFR (CKD-EPI)NonAf >90 (>60 ml/min/1.73 sqM) Glucose 107 H (74-99) mg/dL Plasma Lactic Acid Bart[place] 1.0 (0.7-2.0) mmol/L Calcium 8.6 (8.4-10.2) mg/dL Total Bilirubin 0.7 (0.2-1.3) mg/dL AST 25 (14-36) U/L ALT 18 (4-34) U/L Alkaline Phosphatase 115 (38-126) U/L Total Protein 8.2 (6.3-8.2) g/dL Albumin 4.2 (3.5-5.0) g/dL Urine Color Urine Appearance (Clear) Urine pH (5.0-8.0) Ur Specific [place] (1.001-1.035) Urine Protein (Negative) Urine Glucose (UA) (Negative) Urine Ketones (Negative) Urine Blood (Negative) Urine Nitrite (Negative) Urine Bilirubin (Negative) Urine Urobilinogen (<2.0) mg/dL Ur Leukocyte Esterase (Negative) Urine RBC (0-5) /hpf Urine WBC (0-5) /hpf Ur Squamous Epith Cells (0-4) /hpf Urine Bacteria (None) /hpf Urine Mucus (None) /hpf Urine HCG, Qual (Not Detectd) Influenza Type A RNA (Not Detectd) Influenza Type B (PCR) (Not Detectd) Disposition Clinical Impression: Pyelonephritis Disposition: HOME SELF-CARE Condition: Stable Instructions (If sedation given, give patient instructions): Kidney Infection (ED) Additional Instructions: Please return to the Emergency Department if symptoms worsen or any other concerns. Prescriptions: Cephalexin [Keflex] 500 mg PO Q8HR #30 cap Ibuprofen [Motrin] 800 mg PO Q6HR #30 tab Is patient prescribed a controlled substance at d/c from ED?: No Referrals: None,Stated [Primary Care Provider] - 1-2 days Time of Disposition: 13:35
[2019-12-19 11:43] LABS: Basophils % (A) 0 %; Eosinophils % (A) 0 %; HCT 30.2 % (34.0-46.0); HGB 9.8 gm/dL (11.4-16.0); Hypochromasia Slight; Lymphocytes % (A) 12 %; MCH 22.8 pg (25.0-35.0); MCHC 32.4 g/dL (31.0-37.0); MCV 70.5 fL (80.0-100.0); Mean Platelet Volume 6.8; Microcytosis Moderate; Monocytes # (A) 0.5 k/uL (0-1.0); Monocytes % (A) 6 %; Neutrophils # (A) 6.3 k/uL (1.3-7.7); Neutrophils % (A) 78 %; Platelet Count 282 k/uL (150-450); RBC 4.29 m/uL (3.80-5.40); RDW 15.6 % (11.5-15.5); WBC 8.1 k/uL (3.8-10.6)
[2019-12-19 11:51] LABS: ALT 18 U/L (4-34); AST 25 U/L (14-36); African American GFR (CKD) >90 (>60 ml/min/1.73 sqM); Albumin 4.2 g/dL (3.5-5.0); Alkaline Phosphatase 115 U/L (38-126); Anion Gap 12 mmol/L; Blood Urea Nitrogen 12 mg/dL (7-17); Calcium 8.6 mg/dL (8.4-10.2); Carbon Dioxide 22 mmol/L (22-30); Chloride 105 mmol/L (98-107); Glucose 107 mg/dL (74-99); Non-African American GFR(CKD) >90 (>60 ml/min/1.73 sqM); Potassium 3.8 mmol/L (3.5-5.1); Sodium 139 mmol/L (137-145); Total Bilirubin 0.7 mg/dL (0.2-1.3); Total Protein 8.2 g/dL (6.3-8.2)
--- NOTE | 2019-12-19 13:05 | CT ---
EXAMINATION TYPE: CT abdomen pelvis w con DATE OF EXAM: 12/19/2019 COMPARISON: 11/08/2015 HISTORY: Right flank pain, fever CT DLP: 1449 mGycm CONTRAST: CT scan of the abdomen and pelvis is performed without Oral Contrast and with IV Contrast, patient in jected with 100 mL of Isovue 300. FINDINGS: LUNG BASES-: No visible nodule. No infiltrate. LIVER/GB: No calcified gallstones. No space occupying hepatic lesion. Biliary tree is of normal ca liber. PANCREAS: No inflammation. No distinct mass. SPLEEN: No splenic enlargement. No lesion seen. ADRENALS: No nodule. No thickening. KIDNEYS/BLADDER: There is edema of the right kidney with mildly heterogenous enhancement suspicious for underlying pyelonephritis. The left kidney appears unremarkable at this time. No hydronephrosis. No nephrolithiasis. No distinct renal mass. Urinary bladder grossly unremarkable. BOWEL: Normal appendix. Normal bowel caliber. No inflammation. GENITAL ORGANS: No gross abnormality. LYMPH NODES: No greater than 1cm abdominal or pelvic lymph nodes are appreciated. AORTA: No significant abnormality. OSSEOUS STRUCTURES: No significant abnormality is seen. OTHER: No significant additional abnormality is seen. IMPRESSION: 1. Correlate for right-sided pyelonephritis. No evidence for abscess.
[2019-12-19 13:45] VITALS: BP 132/74; PULSE 76; RESP 16; TEMP 100.1
== END 2019-12-19 13:43 | disposition home or self-care (01) ==
LOC: EC 10:11
DX: N12 Tubulo-interstitial nephritis, not specified as acute or chronic (principal); R00.0 Tachycardia, unspecified; Z88.5 Allergy status to narcotic agent; Z87.442 Personal history of urinary calculi
CPT/HCPCS: 36415; 74177; 80053; 81001; 81025; 83605; 85025; 87040; 87086; 87502; 96365; 99284